=== PATIENT | male | born 1965 | race Caucasian/White ===

== ENCOUNTER 2018-01-12 07:18 | Observation (INO) ==
[2018-01-12 07:56] LABS: Basophils # 0.1 10*3/uL (0.0-0.2); Basophils % 1.3 % (0.0-0.8); Eosinophils # 0.2 10*3/uL (0.0-0.87); Hematocrit 40.6 VOL% (42.0-52.0); Hemoglobin 13.8 GM/DL (14.0-18.0); Immature Granulocytes % 0.9 %; Immature Granulocytes Absolute 0.07 #; Lymphocytes # 2.4 10*3/uL (1.4-4.0); Lymphocytes % 30.6 % (21.2-54.2); Mean Corpuscular Hemoglobin 31 PG (27-34); Mean Corpuscular Volume 89.8 FL (87-102); Mean Platelet Volume 10.9 FL (9.6-12.0); Monocytes # 0.8 10*3/uL (0.11-0.8); Monocytes % 10.3 % (1.7-12.7); Neutrophils # 4.3 10*3/uL (1.4-7.4); Neutrophils % 53.9 % (38.7-73.9); Platelet Count 194 T/CUMM (130-400); Red Blood Count 4.52 MC/CUMM (3.8-5.5); Red Cell Distribution Width 13.2 % (9.3-17.3)
[2018-01-12 07:59] LABS: ABG Base Excess 3.1 MMOL/L (-2.5-2.5); ABG HCO3 27.2 MMOL/L (20-26); ABG Oxygen Saturation 98.8 % (95-100); ABG PCO2 45.4 MM HG (35-48); ABG PH 7.405 (7.35-7.45); ABG TCO2 24.6 MMOL/L (23-27)
[2018-01-12 08:04] LABS: PT Patient Result 10.1 SECS; Partial Thromboplastin Time 25.4 SECS (0-40)
[2018-01-12 08:24] LABS: Alanine Aminotransferase 26 U/L (16-61); Albumin 3.2 G/DL (3.4-5.0); Alkaline Phosphatase 104 U/L (45-117); Aspartate Amino Transferase 18 U/L (0-37); Bilirubin,Total < 0.39 MG/DL (0.2-1.0); Blood Urea Nitrogen 10 MG/DL (7-18); Calcium 9.1 MG/DL (8.5-10.1); Glucose 217 MG/DL (74-106); Osmolality,Calculated 282.5 MOS/KG (273-304); Potassium 3.9 MMOL/L (3.5-5.1); Sodium 139 MMOL/L (136-145); Total Protein 6.9 G/DL (6.4-8.3); Troponin I Only < 0.015 NG/ML (0.00-0.045)
[2018-01-12] MEDS ORDERED: ACETAMINOPHEN 325 MG TABLET PO PRN (11:14)
[2018-01-12] MEDS ORDERED: GLUCAGON 1 MG VIAL IM PRN (11:15)
[2018-01-12] MEDS ORDERED: DEXTROSE 50% 25 GM/50 ML VIAL IV PRN (11:15)
[2018-01-12 14:15] LABS: Troponin I Only < 0.015 NG/ML (0.00-0.045)
[2018-01-12] MEDS: INSULIN LISPRO 100 UNIT/ML SUBCUT SCH ×3 (18:11→20:22)
[2018-01-12] MEDS: PANTOPRAZOLE 40 MG TABLET PO SCH (20:21)
[2018-01-12] MEDS ORDERED: CITALOPRAM 40 MG TABLET PO SCH (21:00)
[2018-01-12] MEDS ORDERED: FENOFIBRATE 145 MG TABLET PO SCH (21:00)
[2018-01-12] MEDS ORDERED: traZODone 50 MG TABLET PO SCH (21:00)
[2018-01-12] MEDS ORDERED: CETIRIZINE 10 MG TABLET PO SCH (21:00)
[2018-01-12 21:49] LABS: Troponin I Only < 0.015 NG/ML (0.00-0.045)
[2018-01-13 05:40] LABS: Basophils # 0.1 10*3/uL (0.0-0.2); Basophils % 1.1 % (0.0-0.8); Eosinophils # 0.2 10*3/uL (0.0-0.87); Eosinophils % 2.8 % (0.00-10.9); Hematocrit 41.1 VOL% (42.0-52.0); Hemoglobin 14.1 GM/DL (14.0-18.0); Immature Granulocytes % 0.7 %; Immature Granulocytes Absolute 0.06 #; Lymphocytes # 2.6 10*3/uL (1.4-4.0); Lymphocytes % 31.3 % (21.2-54.2); Mean Corpuscular HGB Conc 34.3 GM/DL (32-36); Mean Corpuscular Hemoglobin 30 PG (27-34); Mean Corpuscular Volume 87.8 FL (87-102); Mean Platelet Volume 10.8 FL (9.6-12.0); Monocytes # 0.7 10*3/uL (0.11-0.8); Neutrophils # 4.5 10*3/uL (1.4-7.4); Neutrophils % 55.1 % (38.7-73.9); Platelet Count 198 T/CUMM (130-400); Red Blood Count 4.68 MC/CUMM (3.8-5.5); Red Cell Distribution Width 13.3 % (9.3-17.3); White Blood Count 8.2 T/CUMM (4-12)
[2018-01-13 06:17] LABS: Calcium 8.9 MG/DL (8.5-10.1); Osmolality,Calculated 278.5 MOS/KG (273-304); Potassium 3.8 MMOL/L (3.5-5.1); Risk Ratio 5.13; Thyroid Stimulating Hormone 0.938 uIU/ml (0.358-3.74); VLDL CHOLESTEROL 46.6 MG/DL
[2018-01-13] MEDS ORDERED: NADOLOL 40 MG TABLET PO SCH (09:00)
[2018-01-13] MEDS ORDERED: VERAPAMIL SR 240 MG TABLET PO SCH (09:00)
[2018-01-13] MEDS: INSULIN LISPRO 100 UNIT/ML SUBCUT SCH (09:10)
[2018-01-13] MEDS: LISINOPRIL/HCTZ 20-25 MG TABLET PO SCH ×2 (10:15→10:18)
[2018-01-13] MEDS: PANTOPRAZOLE 40 MG TABLET PO SCH (10:16)
[2018-01-13 16:31] VITALS: BP 134/77
== END 2018-01-13 15:48 | disposition home or self-care (01) ==
LOC: N.EDINP 07:18 → N.ED 07:18 → N.TELES 16:29
PROVIDERS: ADMIT Internal Medicine; ATTEND Internal Medicine